=== PATIENT | female | born 1955 | race Caucasian/White ===

== ENCOUNTER 2016-11-21 23:04 | Emergency (ER) | payer MEDICARE, OTHER ==
[~2016-11-21] VITALS: Ht 172.7 cm; Wt 117.9 kg
[~2016-11-21 23:04] MED LIST: ASPI-991 PO; ATOR40TA PO; INSU100I14 SQ; INSU3INS6 SQ; METO100T7 PO; VENL150C2 PO
[2016-11-22 00:01] LABS: BASOPHILS % (AUTO) 0.5 % (0.0-2.0); DIFF TOTAL % 100 %; EOSINOPHILS # (AUTO) 0.2 /CMM (0.0-0.7); EOSINOPHILS % (AUTO) 2.3 % (0.0-6.0); HEMATOCRIT 35 % (33-45); HEMOGLOBIN 11.5 g/dL (11.5-14.8); LYMPHOCYTES # (AUTO) 1.1 /CMM (0.8-4.8); LYMPHOCYTES % (AUTO) 14.8 % (20.0-44.0); MEAN CORPUSCULAR HEMOGLOBIN 27 PG (26.0-33.0); MEAN CORPUSCULAR HGB CONC 33 g/dl (31.0-36.0); MEAN CORPUSCULAR VOLUME 82 fL (82-100); MONOCYTES # (AUTO) 0.5 /CMM (0.1-1.30); MONOCYTES % (AUTO) 6.3 % (2.0-12.0); NEUTROPHILS # (AUTO) 5.8 /CMM (1.8-8.9); NEUTROPHILS % (AUTO) 76.1 % (43.0-81.0); PLATELET COUNT (AUTO) 299 /CMM (150-450); RED BLOOD CELL COUNT(AUTO) 4.34 MIL/uL (4.0-5.2); WHITE BLOOD COUNT (AUTO) 7.6 K/uL (4.3-11.0)
[2016-11-22 00:13] LABS: ANION GAP 9 (5-14); CALCIUM, SERUM 8.1 mg/dL (8.5-10.1); CARBON DIOXIDE 32 mmol/L (21-32); CHLORIDE 100 mmol/L (98-107); CREATININE 1.2 mg/dL (0.6-1.3); GFR 46 mL/min (>60); GLUCOSE 273 mg/dL (74-106); POTASSIUM 3.5 mmol/L (3.5-5.1); SODIUM SERUM 138 mmol/L (136-145); UREA NITROGEN, BLOOD 14 mg/dL (7-18)
[2016-11-22 00:16] LABS: INR 0.98 (0.87-1.13); PROTHROMBIN TIME 10.6 SECS (9.5-12.7)
[2016-11-22 00:20] LABS: TROPONIN I < 0.017 ng/mL (0.00-0.056)
[2016-11-22 00:23] LABS: LACTIC ACID 2.1 mmol/L (0.4-2.0)
[2016-11-22 00:24] LABS: ALANINE AMINOTRANSFERASE 25 U/L (12-78); ALBUMIN 3.4 g/dL (3.4-5.0); ASPARTATE AMINOTRANSFERASE 10 U/L (15-37); BILIRUBIN,DIRECT 0.1 mg/dL (0.0-0.2); BILIRUBIN,TOTAL 0.3 mg/dL (0.2-1.0); INDIRECT BILIRUBIN 0.2 mg/dL (0.0-1.1); TOTAL PROTEIN, SERUM 6.9 g/dL (6.4-8.2)
[2016-11-22 00:54] LABS: *LACTIC ACID REFLEX FLAG YES
[2016-11-22] MEDS ORDERED: MORPHINE SULFATE INJ 2 MG/ML DISP.SYRIN ONE (00:55)
[2016-11-22] MEDS ORDERED: ONDANSETRON HCL/PF 4 MG/2 ML VIAL ONE (00:55)
[2016-11-22] MEDS ORDERED: MORPHINE SULFATE INJ 2 MG/ML DISP.SYRIN IV ONE (01:00)
[2016-11-22] MEDS ORDERED: ONDANSETRON HCL/PF 4 MG/2 ML VIAL IV ONE (01:00)
[2016-11-22 04:43] VITALS: BP 138/76
== END 2016-11-22 04:44 | disposition home or self-care (01) ==
LOC: ER 23:04
DX: G89.29 Other chronic pain (principal); R60.0 Localized edema; E11.9 Type 2 diabetes mellitus without complications; F17.200 Nicotine dependence, unspecified, uncomplicated; I50.9 Heart failure, unspecified; I10 Essential (primary) hypertension; Z79.82 Long term (current) use of aspirin; Z88.0 Allergy status to penicillin; Z79.4 Long term (current) use of insulin
CPT/HCPCS: 36415; 71010; 80048; 80076; 83605; 83880; 84484; 85025; 85730; 87040 ×2; 93005; 96374; 96375; 99285; A4606; J2270; J2405; Z7610

== ENCOUNTER 2016-11-25 08:52 | Inpatient (IN) | payer MEDICARE, OTHER ==
[~2016-11-25] VITALS: Ht 170.2 cm; Wt 112.9 kg
[2016-11-25] MEDS ORDERED: TEMA30CA PO (09:18)
[2016-11-25] MEDS ORDERED: METO-302 PO (09:18)
[2016-11-25] MEDS ORDERED: IV SET PRIMARY PUMP SET 1 EA INFUS.SET MC ONE ×4 (09:18→15:54)
[2016-11-25] MEDS ORDERED: DULO30CA2 PO (09:18)
[2016-11-25] MEDS ORDERED: IV NS 0.9% 1,000 ML ONE (09:18)
[2016-11-25] MEDS ORDERED: FURO40TA5 PO (09:18)
[2016-11-25] MEDS ORDERED: CYCL5TAB PO (09:18)
[2016-11-25] MEDS ORDERED: AMIT100T2 PO (09:18)
[2016-11-25 09:42] LABS: BASOPHILS % (AUTO) 0.1 % (0.0-2.0); DIFF TOTAL % 100 %; HEMATOCRIT 51 % (33-45); HEMOGLOBIN 16.3 g/dL (11.5-14.8); LYMPHOCYTES # (AUTO) 0.7 /CMM (0.8-4.8); MEAN CORPUSCULAR HEMOGLOBIN 26 PG (26.0-33.0); MEAN CORPUSCULAR HGB CONC 32 g/dl (31.0-36.0); MEAN CORPUSCULAR VOLUME 81 fL (82-100); MONOCYTES # (AUTO) 0.4 /CMM (0.1-1.30); MONOCYTES % (AUTO) 2.3 % (2.0-12.0); NEUTROPHILS # (AUTO) 15.9 /CMM (1.8-8.9); NEUTROPHILS % (AUTO) 93.6 % (43.0-81.0); PLATELET COUNT (AUTO) 425 /CMM (150-450); RED BLOOD CELL COUNT(AUTO) 6.33 MIL/uL (4.0-5.2)
[2016-11-25 09:47] LABS: ANION GAP 26 (5-14); CALCIUM, SERUM 9.9 mg/dL (8.5-10.1); CARBON DIOXIDE 22 mmol/L (21-32); CHLORIDE 93 mmol/L (98-107); CREATININE 1.5 mg/dL (0.6-1.3); GFR 35 mL/min (>60); POTASSIUM 3.8 mmol/L (3.5-5.1); SODIUM SERUM 137 mmol/L (136-145); UREA NITROGEN, BLOOD 14 mg/dL (7-18)
[2016-11-25 09:50] LABS: INR 1.05 (0.87-1.13); PROTHROMBIN TIME 11.3 SECS (9.5-12.7)
[2016-11-25 09:51] LABS: TROPONIN I < 0.017 ng/mL (0.00-0.056)
[2016-11-25 09:56] LABS: GLUCOSE 467 mg/dL (74-106)
[2016-11-25 10:16] LABS: KETONES,URINE >=160 (NEGATIVE); LEUKOCYTE ESTERASE ,URINE Negative (NEGATIVE)
[2016-11-25 10:17] LABS: ADD UA MICROSCOPIC YES
[2016-11-25] MEDS ORDERED: ONDANSETRON HCL/PF 4 MG/2 ML VIAL ONE (10:20)
[2016-11-25 10:23] LABS: LACTIC ACID 5.8 mmol/L (0.4-2.0)
[2016-11-25 10:24] LABS: *LACTIC ACID REFLEX FLAG YES
[2016-11-25] MEDS ORDERED: ACETAMINOPHEN 650 MG/SUPP.RECT RC ONE ×2 (10:29→10:30)
[2016-11-25] MEDS ORDERED: IV NS 0.9% 2,000 ML ONE (10:29)
[2016-11-25] MEDS ORDERED: CEFTRIAXONE 1GM BAG (ER ONLY) 50 ML IV ONE ×2 (10:29→10:30)
[2016-11-25] MEDS ORDERED: ONDANSETRON HCL/PF 4 MG/2 ML VIAL IV ONE (10:30)
[2016-11-25] MEDS ORDERED: INSULIN REGULAR, HUMAN 100 UNIT in IV NS 0.9% 99 ML IV PRN ×2 (10:30)
[2016-11-25] MEDS ORDERED: IV NS 0.9% 1,000 ML BAG IV ONE (10:30)
[2016-11-25 10:38] LABS: RBC,URINE 21-50 /HPF (0-2)
[2016-11-25 10:42] LABS: ADD URINE CULTURE NO
[2016-11-25 11:19] LABS: ABG BASE EXCESS -6.3 mmol/L; ABG HCO3 18.2 mmol/L; ABG PCO2 33.1 mmHg (35.0-45.0); ABG PH 7.357 (7.350-7.450); ABG PO2 76.8 mmHg (75.0-100.0); ABG TOTAL HEMOGLOBIN 14.8 G/dL (12.0-16.0); ALLEN TEST Pass; AaDO2 33.3 mmHg; O2Hb 92.2 % (94.0-97.0)
[2016-11-25 11:50] LABS: BILIRUBIN,DIRECT 0.1 mg/dL (0.0-0.2); BILIRUBIN,TOTAL 0.6 mg/dL (0.2-1.0)
[2016-11-25] MEDS ORDERED: METOCLOPRAMIDE HCL 10 MG/2 ML VIAL ONE (11:54)
[2016-11-25] MEDS ORDERED: IV NS 0.9% 50 ML IV ONE (11:55)
[2016-11-25] MEDS ORDERED: IV SET PRIMARY 1 EA INFUS.SET MC ONE (11:55)
[2016-11-25] MEDS ORDERED: METOCLOPRAMIDE HCL 10 MG/2 ML VIAL IV ONE (12:00)
[2016-11-25 12:13] LABS: CANNABINOID, URINE NEGATIVE (NEGATIVE); PHENCYCLIDINE SCREEN,URINE NEGATIVE (NEGATIVE)
[2016-11-25] MEDS ORDERED: hydrALAZINE HCL IV 20 MG VIAL ONE ×2 (12:17→13:40)
[2016-11-25] MEDS ORDERED: hydrALAZINE HCL IV 20 MG VIAL IV ONE (12:30)
[2016-11-25] MEDS ORDERED: AMLODIPINE BESYLATE 5 MG TABLET ONE (13:20)
[2016-11-25] MEDS ORDERED: AMLODIPINE BESYLATE 10 MG TABLET PO SCH (13:30)
[2016-11-25] MEDS ORDERED: hydrALAZINE HCL IV 20 MG VIAL IV PRN (13:30)
[2016-11-25] MEDS ORDERED: FUROSEMIDE 40 MG/4 ML VIAL ONE (13:34)
[2016-11-25] MEDS ORDERED: FUROSEMIDE 40 MG/4 ML VIAL IV ONE (14:00)
[2016-11-25 15:00] VITALS: BP 198/91
[2016-11-25 16:00] VITALS: BP 197/94
[2016-11-25] MEDS ORDERED: BLOOD SUGAR DIAGNOSTIC 1 EACH STRIP IN PRN (16:00)
[2016-11-25] MEDS ORDERED: FLAGYL/NS RTU 500 MG/100 ML PIGGYBACK IV SCH (16:00)
[2016-11-25] MEDS: ONDANSETRON HCL/PF 4 MG/2 ML VIAL IVP PRN ×2 (16:03→23:18)
[2016-11-25] MEDS: IV NS 0.9% 1,000 ML IV PRN ×2 (16:04→23:59)
[2016-11-25] MEDS ORDERED: BLOOD SUGAR DIAGNOSTIC 1 EACH STRIP IN SCH (16:30)
[2016-11-25] MEDS ORDERED: CLONIDINE HCL 0.2MG/24H PTWK 1 EA PATCH TD SCH (16:30)
[2016-11-25] MEDS ORDERED: INSULIN REGULAR, HUMAN 100 UNIT/ML 10 ML VIAL SQ SCH (17:00)
[2016-11-25] MEDS: CEFTRIAXONE 1 G in IV D5W 50 ML IV SCH (17:29)
[2016-11-25] MEDS: METRONIDAZOLE 500MG/ NS 100ML 500 MG in PREMIX 1 EA IV SCH (17:30)
[2016-11-25] MEDS ORDERED: DEXTROSE 50%-WATER 50 ML DISP.SYRIN IV PRN (17:30)
[2016-11-25] MEDS: BLOOD SUGAR DIAGNOSTIC 1 EACH STRIP IN SCH ×2 (17:37→23:19)
[2016-11-25] MEDS: LABETALOL 20 MG/4 ML VIAL IV PRN ×2 (17:39→20:05)
[2016-11-25] MEDS: INSULIN REGULAR, HUMAN 100 UNIT/ML 3 ML VIAL SQ PRN ×2 (17:39→23:20)
[2016-11-25 20:00] VITALS: BP 181/88
[2016-11-25] MEDS ORDERED: INSULIN DETEMIR 100 UNIT/ML CARTRIDGE SQ SCH (21:00)
[2016-11-25 21:21] VITALS: BP 179/86
[2016-11-26] VITALS (49 sets, daily range): BP systolic 114–229; BP diastolic 44–107
[2016-11-26] MEDS ORDERED: NITROGLYCERIN PACKET 1 GM PACKET ONE ×2 (00:59→06:26)
[2016-11-26] MEDS: NITROGLYCERIN 30 GM TUBE TP SCH ×5 (01:04→23:14)
[2016-11-26] MEDS ORDERED: IV NS 0.9% 100 ML IV ONE (02:10)
[2016-11-26] MEDS ORDERED: IV SET PRIMARY PUMP SET 1 EA INFUS.SET MC ONE ×3 (02:10→10:06)
[2016-11-26] MEDS: BLOOD SUGAR DIAGNOSTIC 1 EACH STRIP IN SCH ×14 (02:18→21:08)
[2016-11-26] MEDS: INSULIN REGULAR, HUMAN 100 UNIT in IV NS 0.9% 99 ML IV PRN ×4 (02:19→04:22)
[2016-11-26] MEDS ORDERED: LABETALOL HCL IV 100MG VIAL ONE ×2 (02:36→05:30)
[2016-11-26] MEDS: LABETALOL 20 MG/4 ML VIAL IV PRN ×3 (02:45→05:37)
[2016-11-26] MEDS ORDERED: IV SET PRIMARY 1 EA INFUS.SET MC ONE (04:16)
[2016-11-26] MEDS: CEFTRIAXONE 1 G in IV D5W 50 ML IV SCH (05:22)
[2016-11-26 07:01] LABS: BASOPHILS % (AUTO) 0.2 % (0.0-2.0); DIFF TOTAL % 100 %; HEMATOCRIT 43 % (33-45); HEMOGLOBIN 13.9 g/dL (11.5-14.8); LYMPHOCYTES % (AUTO) 5.9 % (20.0-44.0); MEAN CORPUSCULAR HEMOGLOBIN 26 PG (26.0-33.0); MEAN CORPUSCULAR HGB CONC 32 g/dl (31.0-36.0); MEAN CORPUSCULAR VOLUME 81 fL (82-100); MONOCYTES % (AUTO) 5.9 % (2.0-12.0); NEUTROPHILS # (AUTO) 14.9 /CMM (1.8-8.9); PLATELET COUNT (AUTO) 404 /CMM (150-450); RED BLOOD CELL COUNT(AUTO) 5.36 MIL/uL (4.0-5.2)
[2016-11-26 07:29] LABS: CALCIUM, SERUM 8.7 mg/dL (8.5-10.1); CREATININE 1.3 mg/dL (0.6-1.3); POTASSIUM 3.5 mmol/L (3.5-5.1)
[2016-11-26 07:30] LABS: LACTIC ACID 1.8 mmol/L (0.4-2.0)
[2016-11-26] MEDS ORDERED: LABETALOL HCL INJ 200 MG/40 ML VIAL IV PRN (08:00)
[2016-11-26 08:07] LABS: CREATINE KINASE MB 0.4 ng/mL (0-3.6)
[2016-11-26] MEDS: METRONIDAZOLE 500MG/ NS 100ML 500 MG in PREMIX 1 EA IV SCH ×4 (08:15→17:20)
[2016-11-26] MEDS ORDERED: INSULIN DETEMIR 100 UNIT/ML CARTRIDGE SQ SCH (09:00)
[2016-11-26] MEDS ORDERED: LORAZEPAM 1 MG TABLET PO PRN (09:00)
[2016-11-26] MEDS ORDERED: DEXTROSE 50%-WATER 50 ML DISP.SYRIN IV PRN (09:30)
[2016-11-26] MEDS ORDERED: LORAZEPAM INJ 2 MG/ML VIAL IV PRN (09:30)
[2016-11-26] MEDS: CEFEPIME 1 GM in IV D5W 50 ML IV SCH ×2 (09:54→20:34)
[2016-11-26] MEDS: POTASSIUM CHLORIDE 10 MEQ/50 ML PREMIXED IVPB FOR PERIPHERAL LINE IV SCH (09:55)
[2016-11-26] MEDS: PANTOPRAZOLE 40 MG VIAL IV SCH (10:10)
[2016-11-26] MEDS: METOPROLOL TARTRATE 50 MG TABLET PO SCH ×2 (10:11→20:44)
[2016-11-26] MEDS: INSULIN DETEMIR 100 UNIT/ML CARTRIDGE SQ SCH ×2 (10:29→21:12)
[2016-11-26] MEDS: BENAZEPRIL HCL 5 MG TABLET PO SCH (10:50)
[2016-11-26] MEDS: INSULIN ASPART NOVOLOG 100 UNIT/ML CARTRIDGE SQ PRN ×3 (12:22→21:08)
[2016-11-26] MEDS ORDERED: K PHOS NEUTRAL 250 MG TABLET PO ONE (13:30)
[2016-11-26] MEDS: IV NS 0.9% 1,000 ML IV PRN (14:30)
[2016-11-26] MEDS: LABETALOL HCL IV 100MG VIAL IV PRN (15:07)
[2016-11-26] MEDS: ATORVASTATIN 40 MG TABLET PO SCH (21:38)
[2016-11-26] MEDS: HYDROMORPHONE 1 MG/1 ML DISP.SYRIN IV PRN (22:41)
[2016-11-27] VITALS (35 sets, daily range): BP systolic 138–186; BP diastolic 56–85
[2016-11-27] MEDS: LABETALOL HCL IV 100MG VIAL IV PRN ×3 (00:07→17:21)
[2016-11-27] MEDS: METRONIDAZOLE 500MG/ NS 100ML 500 MG in PREMIX 1 EA IV SCH ×3 (00:09→17:23)
[2016-11-27] MEDS: IV NS 0.9% 1,000 ML IV PRN ×2 (01:55→15:33)
[2016-11-27 05:19] LABS: BASOPHILS # (AUTO) 0.2 /CMM (0.0-0.2); BASOPHILS % (AUTO) 1.9 % (0.0-2.0); DIFF TOTAL % 100 %; EOSINOPHILS # (AUTO) 0.1 /CMM (0.0-0.7); EOSINOPHILS % (AUTO) 0.6 % (0.0-6.0); HEMATOCRIT 44 % (33-45); LYMPHOCYTES # (AUTO) 1.8 /CMM (0.8-4.8); LYMPHOCYTES % (AUTO) 13.7 % (20.0-44.0); MEAN CORPUSCULAR HEMOGLOBIN 26 PG (26.0-33.0); MEAN CORPUSCULAR HGB CONC 32 g/dl (31.0-36.0); MEAN CORPUSCULAR VOLUME 83 fL (82-100); MONOCYTES # (AUTO) 0.7 /CMM (0.1-1.30); MONOCYTES % (AUTO) 5.4 % (2.0-12.0); NEUTROPHILS # (AUTO) 10.1 /CMM (1.8-8.9); NEUTROPHILS % (AUTO) 78.4 % (43.0-81.0); PLATELET COUNT (AUTO) 188 /CMM (150-450); RED BLOOD CELL COUNT(AUTO) 5.33 MIL/uL (4.0-5.2); WHITE BLOOD COUNT (AUTO) 12.9 K/uL (4.3-11.0)
[2016-11-27 05:27] LABS: CALCIUM, SERUM 8.2 mg/dL (8.5-10.1); PHOSPHORUS 2.9 mg/dL (2.5-4.9); POTASSIUM 4.1 mmol/L (3.5-5.1)
[2016-11-27] MEDS: HYDROMORPHONE 1 MG/1 ML DISP.SYRIN IV PRN ×4 (08:06→18:45)
[2016-11-27] MEDS: BENAZEPRIL HCL 5 MG TABLET PO SCH (08:07)
[2016-11-27] MEDS: METOPROLOL TARTRATE 50 MG TABLET PO SCH ×2 (08:07→21:25)
[2016-11-27] MEDS: PANTOPRAZOLE 40 MG VIAL IV SCH (08:07)
[2016-11-27] MEDS: BLOOD SUGAR DIAGNOSTIC 1 EACH STRIP IN SCH ×4 (08:08→21:26)
[2016-11-27] MEDS: INSULIN DETEMIR 100 UNIT/ML CARTRIDGE SQ SCH ×2 (08:09→21:45)
[2016-11-27] MEDS: *INSULIN ASPART NOVOLOG 100 UNIT/ML CARTRIDGE SQ PRN ×3 (08:11→21:46)
[2016-11-27] MEDS: POTASSIUM CHLORIDE 10 MEQ/50 ML PREMIXED IVPB FOR PERIPHERAL LINE IV SCH (08:16)
[2016-11-27] MEDS: CEFEPIME 1 GM in IV D5W 50 ML IV SCH ×2 (08:28→21:23)
[2016-11-27] MEDS: NITROGLYCERIN 30 GM TUBE TP SCH ×2 (09:29→15:24)
[2016-11-27] MEDS: HYDROMORPHONE INJ 2 MG/ML DISP.SYRIN IV PRN ×3 (12:00→23:24)
[2016-11-27] MEDS: INSULIN ASPART NOVOLOG 100 UNIT/ML CARTRIDGE SQ PRN (12:06)
[2016-11-27] MEDS ORDERED: PETROLATUM,WHITE PACKET 5 GM PACKET TP PRN (17:00)
[2016-11-27] MEDS: HYDROCHLOROTHIAZIDE 25 MG TABLET PO SCH (18:44)
[2016-11-27] MEDS: Z GUARD REMEDY 2 OZ OINT TP SCH (18:45)
[2016-11-27] MEDS ORDERED: SECONDARY IV SET 1 EA INFUS.SET MC ONE (21:19)
[2016-11-27] MEDS: AMITRIPTYLINE HCL 25 MG TABLET PO SCH (21:26)
[2016-11-27] MEDS: ATORVASTATIN 40 MG TABLET PO SCH (21:26)
[2016-11-28] VITALS: BP 158/70
[2016-11-28] MEDS: METRONIDAZOLE 500MG/ NS 100ML 500 MG in PREMIX 1 EA IV SCH ×3 (00:42→17:39)
[2016-11-28] MEDS: HYDROMORPHONE INJ 2 MG/ML DISP.SYRIN IV PRN ×9 (01:23→22:17)
[2016-11-28 04:00] VITALS: BP 162/99
[2016-11-28] MEDS ORDERED: IV NS 0.9% 250 ML IV ONE (06:20)
[2016-11-28] MEDS: BLOOD SUGAR DIAGNOSTIC 1 EACH STRIP IN SCH ×4 (06:35→21:22)
[2016-11-28] MEDS: INSULIN ASPART NOVOLOG 100 UNIT/ML CARTRIDGE SQ PRN ×3 (06:41→17:52)
[2016-11-28 08:00] VITALS: BP 168/77
[2016-11-28] MEDS ORDERED: DULOXETINE HCL 30 MG CAPSULE.DR PO SCH (09:00)
[2016-11-28] MEDS ORDERED: BENAZEPRIL HCL 10 MG TABLET PO SCH ×2 (09:00)
[2016-11-28] MEDS: CEFEPIME 1 GM in IV D5W 50 ML IV SCH ×2 (09:19→20:08)
[2016-11-28] MEDS: PANTOPRAZOLE 40 MG VIAL IV SCH (09:20)
[2016-11-28] MEDS: METOPROLOL TARTRATE 50 MG TABLET PO SCH ×2 (09:21→21:21)
[2016-11-28] MEDS: HYDROCHLOROTHIAZIDE 25 MG TABLET PO SCH (09:22)
[2016-11-28] MEDS: Z GUARD REMEDY 2 OZ OINT TP SCH (09:25)
[2016-11-28] MEDS: INSULIN DETEMIR 100 UNIT/ML CARTRIDGE SQ SCH ×2 (09:27→21:22)
[2016-11-28 16:00] VITALS: BP 151/63
[2016-11-28 20:00] VITALS: BP 164/75
[2016-11-28 21:21] VITALS: BP 164/75
[2016-11-28] MEDS: *INSULIN ASPART NOVOLOG 100 UNIT/ML CARTRIDGE SQ PRN (21:23)
[2016-11-28] MEDS: AMITRIPTYLINE HCL 25 MG TABLET PO SCH (21:27)
[2016-11-28] MEDS: ATORVASTATIN 40 MG TABLET PO SCH (21:27)
== END 2016-11-28 23:16 | disposition short-term general hospital (02) | DRG 871 ==
LOC: ER 08:55 → ICU 12:00 → MEDSG1 14:26 → TELE-TD 14:29 → ICU 11-26 01:11 → TELE1 11-27 19:40 → TELE-TD 11-27 20:11 → MEDSG1 11-28 10:23
PROVIDERS: ADMIT Internal Medicine; ATTEND Internal Medicine
DX: A41.9 Sepsis, unspecified organism (principal); G93.41 Metabolic encephalopathy; K22.6 Gastro-esophageal laceration-hemorrhage syndrome; J69.0 Pneumonitis due to inhalation of food and vomit; G93.40 Encephalopathy, unspecified; E10.10 Type 1 diabetes mellitus with ketoacidosis without coma; I13.0 Hypertensive heart and chronic kidney disease with heart failure and stage 1 through stage 4 chronic kidney disease, or unspecified chronic kidney disease; I50.32 Chronic diastolic (congestive) heart failure; K51.90 Ulcerative colitis, unspecified, without complications; N39.0 Urinary tract infection, site not specified; F11.20 Opioid dependence, uncomplicated; I25.10 Atherosclerotic heart disease of native coronary artery without angina pectoris; N18.2 Chronic kidney disease, stage 2 (mild); Z88.0 Allergy status to penicillin; G62.9 Polyneuropathy, unspecified; E66.01 Morbid (severe) obesity due to excess calories; G89.4 Chronic pain syndrome; R09.02 Hypoxemia; Z79.4 Long term (current) use of insulin; E10.22 Type 1 diabetes mellitus with diabetic chronic kidney disease
CPT/HCPCS: 36415; 36600; 70450-TC; 71010-TC; 80048-TC; 80305; 81000-TC; 82010-TC; 82247-TC; 82248-TC; 82553-TC; 82962-TC; 83605-TC; 83735-TC; 84100-TC; 84484-TC; 85025-TC; 85730-TC; 87040-TC; 87081-TC; 87086-TC; 94799-TC; A4216; A4606; C9113; J0360; J0692; J0696; J1170; J1815; J1940; J2060; J2405; J2765; J3480; J3490; J7030; J7050; J7060; Z7610

== ENCOUNTER 2019-02-26 12:30 | Outpatient (CLI) | payer MEDICARE, OTHER ==
[~2019-02-26 12:30] MED LIST changes: +AMIT100T2 PO; +ASPI-1152 PO; -ASPI-991 PO; +CYCL5TAB PO; +DULO30CA2 PO; +FURO40TA5 PO; +METO-356 PO; -METO100T7 PO; +TEMA30CA PO
== END 2019-02-26 23:59 | disposition home or self-care (01) ==
LOC: RAD 12:30
PROVIDERS: ATTEND Internal Medicine
DX: Z01.818 Encounter for other preprocedural examination (principal); I70.0 Atherosclerosis of aorta
CPT/HCPCS: 71046

== ENCOUNTER 2020-05-31 17:51 | Emergency (ER) | payer BC ==
[~2020-05-31] VITALS: Ht 172.7 cm; Wt 81.6 kg
[~2020-05-31 17:51] MED LIST changes: -ASPI-1152 PO; +ASPI-1420 PO; -METO-356 PO; +METO25TA4 PO
--- NOTE | 2020-05-31 18:10 | NUR ---
SENT BY DR. SARKAR TO ER, ABNORMAL US RESULTS DONE THIS MORNING; NEEDS URGENT SURGICAL EVAL PER TEXT MESSAGE (BY DR. SARKAR). PATIENT AA/OX4, BREATHING EVEN AND UNLABORED, NO SOB NOTED. NEEDS ATTENDED. KEPT COMFORTABLE.
--- NOTE | 2020-05-31 18:20 | NUR ---
DR. REAL AT BEDSIDE FOR EVAL.
[2020-05-31 18:27] LABS: BASOPHILS # (AUTO) 0.1 /CMM (0.0-0.2); BASOPHILS % (AUTO) 0.8 % (0.0-2.0); EOSINOPHILS % (AUTO) 1.7 % (0.0-6.0); HEMATOCRIT 43 % (33-45); HEMOGLOBIN 14.2 g/dL (11.5-14.8); LYMPHOCYTES # (AUTO) 1.7 /CMM (0.8-4.8); LYMPHOCYTES % (AUTO) 20.7 % (20.0-44.0); MEAN CORPUSCULAR HGB CONC 33 g/dl (31.0-36.0); MEAN CORPUSCULAR VOLUME 92 fL (82-100); MONOCYTES # (AUTO) 0.4 /CMM (0.1-1.30); MONOCYTES % (AUTO) 4.6 % (2.0-12.0); NEUTROPHILS # (AUTO) 5.9 /CMM (1.8-8.9); NEUTROPHILS % (AUTO) 72.2 % (43.0-81.0); PLATELET COUNT (AUTO) 266 /CMM (150-450); RED BLOOD CELL COUNT(AUTO) 4.68 MIL/uL (4.0-5.2); WHITE BLOOD COUNT (AUTO) 8.1 K/uL (4.3-11.0)
--- NOTE | 2020-05-31 18:29 | NUR ---
URINE SENT TO LAB.
[2020-05-31 18:34] LABS: APPEARANCE,URINE Cloudy (CLEAR); BILIRUBIN,URINE Negative (NEGATIVE); BLOOD, URINE Small Ery/uL (NEGATIVE); COLOR,URINE Yellow (YELLOW); KETONES,URINE Negative (NEGATIVE); LEUKOCYTE ESTERASE ,URINE Moderate (NEGATIVE); NITRITE, URINE Positive (NEGATIVE); PH,URINE 6.5 (5.0-8.0); PROTEIN,URINE Trace mg/dl (NEGATIVE); UGLUCOSE Negative (NEGATIVE); UROBILINOGEN,URINE 0.2 EU/dL (0.2)
[2020-05-31 18:38] LABS: CALCIUM, SERUM 8.9 mg/dL (8.5-10.1); CREATININE 1.1 mg/dL (0.6-1.3); POTASSIUM 3.7 mmol/L (3.5-5.1)
[2020-05-31 18:39] LABS: BACTERIA,URINE Many /HPF (None Seen); SQUAMOUS EPITHELIAL CELL,UR Moderate /HPF (None Seen); WBC,URINE 21-50 /HPF (0-3)
[2020-05-31 18:43] LABS: ALBUMIN 4.6 g/dL (3.4-5.0); BILIRUBIN,DIRECT 0.1 mg/dL (0.0-0.2); BILIRUBIN,TOTAL 0.5 mg/dL (0.2-1.0)
[2020-05-31] MEDS ORDERED: LEVOFLOXACIN 750 MG /D5W 150ML PIGGYBACK IV ONE (19:30)
--- NOTE | 2020-05-31 20:15 | NUR ---
Patient discharged to home in stable condition. Written and verbal after care instructions given. Patient verbalizes understanding of instruction. IV removed. Catheter intact and site benign. Pressure and 4x4 applied to site. No bleeding noted.
[2020-05-31 20:16] VITALS: BP 130/75
== END 2020-05-31 20:17 | disposition home or self-care (01) ==
LOC: ER 17:58
DX: N12 Tubulo-interstitial nephritis, not specified as acute or chronic (principal); K80.80 Other cholelithiasis without obstruction; I11.0 Hypertensive heart disease with heart failure; I50.9 Heart failure, unspecified; E11.9 Type 2 diabetes mellitus without complications; E78.5 Hyperlipidemia, unspecified; F32.9 Major depressive disorder, single episode, unspecified; G89.4 Chronic pain syndrome; G47.00 Insomnia, unspecified; M54.6 Pain in thoracic spine; Z90.89 Acquired absence of other organs; Z98.890 Other specified postprocedural states; Z88.0 Allergy status to penicillin; Z91.018 Allergy to other foods; Z79.4 Long term (current) use of insulin; Z79.82 Long term (current) use of aspirin; Z79.899 Other long term (current) drug therapy
CPT/HCPCS: 36415; 80048; 80076; 81001; 83690; 85025; 87086; 96365; 99284; J1956; 81000-TC; 87186-TC